=== PATIENT | male | born 1975 ===

== ENCOUNTER → 2019-12-17 | Outpatient (CLI) | payer OTHER ==
--- NOTE | 2019-12-17 16:12 | RAD ---
EXAM: MRI left shoulder DATE: 12/17/2019 1:00 PM COMPARISON: None INDICATION: WORSENING LEFT SHOULDER PAIN, limited range of motion TECHNIQUE: Multiplanar, multisequence MRI of the left shoulder was performed without contrast. FINDINGS: Suboptimal [id number] ratio and other technical factors result in limited examination. AC joint is congruent. Lateral downsloping of the distal acromion. No os acromiale. Type II acromion. Subacromial-subdeltoid bursal edema likely bursitis. Mild increased signal within the distal supraspinatus tendon consistent with tendinosis. Mild increased signal within the subscapularis tendon consistent with tendinosis. No discrete rotator cuff tear is seen. T1 marrow signal is preserved. No fracture or osteonecrosis. Extra-articular long head biceps tendon is seen within the bicipital groove. Intra-articular long head biceps tendon is grossly intact although not well seen. Mild thickening of the inferior joint capsule/inferior glenohumeral ligament and heterogeneity of the rotator interval may be seen with adhesive capsulitis. Evaluation for labral tear limited on this arthrographic study. Articular cartilage is not well assessed based on technical factors. No fracture or osteonecrosis. IMPRESSION: Mild supraspinatus tendinosis and subscapularis tendinosis without discrete full-thickness rotator cuff tear. Trace subacromial-subdeltoid bursal edema likely bursitis. Electronically signed by: Bob Handy MD (12/17/2019 4:09 PM) [email or web address]
== END ==
LOC: MRI 12:58 → EEVIPCON 13:00
PROVIDERS: ATTEND Physician Assistant
DX: S46.012A Strain of muscle(s) and tendon(s) of the rotator cuff of left shoulder, initial encounter (principal); X58.XXXA Exposure to other specified factors, initial encounter; Y93.89 Activity, other specified; Y92.89 Other specified places as the place of occurrence of the external cause; Y99.8 Other external cause status
CPT/HCPCS: 73221